=== PATIENT | male | born 1945 | race Caucasian/White ===

== ENCOUNTER 2018-07-02 13:32 | Emergency (ER) | payer OTHER ==
--- NOTE | 2018-07-02 13:51 | EDPHY ---
H & P Stated Complaint: VERTIGO THEN NAUSEA/VOMIT, START 1100, SENT FROM [facility]? Time Seen by Provider: 07/02/18 13:50 HPI/ROS: CHIEF COMPLAINT: Dizziness, nausea HISTORY OF PRESENT ILLNESS: The patient is a 72 y/o male with a history of CAD arriving with his at the recommendation of his PCP for evaluation of dizziness and nausea. He was at a [employer] festival this weekend and felt fatigued by the end of it. Upon returning home he went to sleep immediately. About one hour after waking around 11:10, 3 hours ago, he suddenly became dizzy and saw the room rotating clockwise. This was associated with nausea and profuse diaphoresis. The spinning sensation lasted for less than a minute and improved after drinking some water. When he got up to walk he felt slightly off balance like he was listing to the right. He read about symptoms online and became concerned he could be having a heart attack so he went to see his PCP. They performed an EKG, administered Zofran, and referred him to the ED. Per the patient "right now the leading suspect is marijuana" as he is an avid daily user. He has vomited three times since symptoms began. He says he currently feels "lousy" and is still nauseated. He also has a generalized headache more along the back of his head and notes that he does not typically get headaches. The headache did not come on abruptly and is not severe. He denies vision changes, hearing changes, difficulty with speech, weakness, paresthesias. No recent illness. REVIEW OF SYSTEMS: A ten system review of systems was performed and is negative with the exception of the items mentioned in the HPI. Past medical history: 1. High calcium score 2. Some type of arrhythmia 3. Hypertension - Cozaar, metoprolol Past surgical history: Noncontributory Family history: Noncontributory Social history: Daily marijuana use "quite a bit;" "take a hit every hour" via vaporizer, no edibles. No other recreational drugs. Occasional alcohol use. Never smoker. at bedside. 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 PCP: Dr. Johnson. General Appearance: Alert. Vital signs reviewed. Blood pressure 210/90 at triage, 158/79 at DC. Heart rate 59. Eyes: Pupils equal and round, no conjunctival injection, no discharge. Anicteric. ENT, Mouth: Mucous membranes are moist, no oropharyngeal erythema or edema. TMs obscured by cerumen bilaterally. Neck: No lymphadenopathy, supple. No carotid bruit. No meningeal signs. Respiratory: Lungs are clear to auscultation; no wheezes, rales, or rhonchi. Cardiovascular: Regular rate and rhythm; no murmur, rub, or gallop. Gastrointestinal: Abdomen is soft and nontender, no masses or organomegaly. Skin: Warm and dry, no rashes on exposed skin, normal color. Back: Nontender to palpation over the thoracolumbar spine. No CVAT. Extremities: No lower extremity edema, no calf tenderness or swelling. Neurological: Alert and oriented. Moving all four extremities easily and equally. Cranial nerves II through XII are examined and are intact (visual acuity not tested). Strength is 5 over 5 bilaterally with testing of all major motor groups. Sensation is intact to light touch over all 4 extremities. Deep tendon reflexes are 2+ in the biceps and knees bilaterally. [id number] is performed accurately. No truncal ataxia. Normal gait. Psychiatric: Normal affect. - Personal History Current Tetanus/Diphtheria Vaccine: Yes - Medical/Surgical History Hx Asthma: Yes Hx Chronic Respiratory Disease: Yes Hx Diabetes: No Hx Cardiac Disease: Yes Hx Renal Disease: No Hx Cirrhosis: No Hx Alcoholism: No Hx HIV/AIDS: No Hx Splenectomy or Spleen Trauma: No Other PMH: APPY, HYDROCELE, DIVERTICULITIS, COPD, CAD, HTN, PRE-DIABET, ARRYTHMIA, DEPRESSION - Social History Smoking Status: Never smoked Constitutional: Initial Vital Signs Heart Rate 59 L 07/02/18 13:40 Respiratory Rate 20 07/02/18 13:40 Blood Pressure 210/90 H 07/02/18 13:40 O2 Sat (%) 97 07/02/18 13:40 O2 Delivery Mode Room Air Allergies/Adverse Reactions: No Known Allergies Allergy (Unverified 07/02/18 13:37) Home Medications: Medication Instructions Recorded Amlodipine Besylate 07/02/18 Aspirin 07/02/18 Atorvastatin Calcium 07/02/18 Cozaar 07/02/18 Fish Oil 1000 mg (*) 07/02/18 Metformin HCl 07/02/18 Metoprolol Tartrate 07/02/18 Niacin 07/02/18 Ondansetron Odt [Zofran Odt 4 mg 4 mg PO Q4 PRN #10 tab 07/02/18 (RX)] Venlafaxine HCl 07/02/18 Vitamin D3 07/02/18 Medical Decision Making - Diagnostics Imaging: Discussed imaging studies w/ call center representative Radiologist, I viewed and interpreted images myself ED Course/Re-evaluation: This is a 72 y/o male who presents with acute onset room-spinning dizziness with associated nausea, diaphoresis, and vomiting. The dizziness improved, but nausea has remained. PCP sent him for cardiac evaluation, though suspect cannabinoid hyperemesis. He has a normal neurologic exam and benign abdomen. Consider vertigo vs. cerebellar abnormality vs stroke (hemorrhagic or ischemic) . He was quite hypertensive on arrival, this improved markedly during his stay. Plan for IV, labs, EKG, head CT, symptomatic management. 4mg IV Zofran ordered. The 12 lead EKG was interpreted by myself. Sinus bradycardia rate 48. See hard copy and/or "tracemaster" electronic copy for interpretation. Head CT: nothing acute Patient is continuing to feel nauseated on reassessment. He says he got new marijuana last week and is wondering if it was stronger than normal. Will treat for possible cannabinoid hyperemesis with 2mg IV Haldol. 1714: Patient is tolerating PO ice chips without issue. During his ED stay ( four hours) he received one liter NS IVF, zofran 4 mg IV, followed by Haldol 2 mg IV (for treatment of possible cyclic vomiting) and PO tylenol. His gait remains stable, but he continues with mild nausea. He has not vomited since his arrival. I do not think that he has had an ICH and I do not find convincing signs of a cerebellar abnormality on exam. He has a normal neurologic exam. BP 158/79. We discussed MRI, but at this point I do not feel that an MRI is needed. Danger signs reviewed with the patient and his . I tried to reach referring midlevel (Dr. Johnson's office) to provide an update on patient's condition, but was unable to do so. Differential Diagnosis: Vertigo including but not limited to peripheral causes such as benign positional vertigo, Meniere's disease, viral labyrinthitis and central causes such as CVA, and tumor. I considered other causes of dizziness and vomiting including cerebellar stroke and cyclic vomiting syndrome. - Data Points Laboratory Results: Laboratory Results 07/02/18 14:32 07/02/18 14:32 Medications Given: Discontinued Medications Acetaminophen (Tylenol) 650 mg PO EDNOW ONE Stop: 07/02/18 17:06 Last Admin: 07/02/18 17:36 Dose: 650 mg Haloperidol Lactate (Haldol Injection) 2 mg IVP EDNOW ONE Stop: 07/02/18 15:57 Last Admin: 07/02/18 16:04 Dose: 2 mg Sodium Chloride (Ns) 1,000 mls @ 0 mls/hr IV EDNOW ONE; Wide Open PRN Reason: Protocol Stop: 07/02/18 15:57 Last Admin: 07/02/18 16:04 Dose: 1,000 mls Ondansetron HCl (Zofran) 4 mg IVP EDNOW ONE Stop: 07/02/18 14:30 Last Admin: 07/02/18 15:12 Dose: 4 mg Point of Care Test Results: Chemistry 07/02/18 14:41 POC Troponin I 0.00 ng/mL ng/mL (0.00-0.08) Departure - Departure Disposition: Home, Routine, Self-Care Clinical Impression: Vertigo, Nausea Condition: Good Instructions: Ondansetron (By mouth), Vertigo (ED), Acute Nausea and Vomiting ( ED) Additional Instructions: Take Zofran as prescribed if needed for recurrent nausea and vomiting. Follow up with your primary care provider for unimproved symptoms over the next 1-2 days. Return to the ED for worsening of condition. Referrals: Josiah Johnson MD [Primary Care Provider] - As per Instructions Prescriptions: Ondansetron Odt [Zofran Odt 4 mg (RX)] 4 mg PO Q4 PRN #10 tab PRN Reason: nausea Report Scribed for: Skyla Musa Report Scribed by: Becca Ellis Date of Report: 07/02/18 Time of Report: 14:35 Physician Review and Approval Statement: 07/02/18 13:50 Portions of this note were transcribed by the medical consultant. I, Dr. Skyla Musa, personally performed the history, physical exam, and medical decision- making; and confirmed the accuracy of the information in the transcribed note.
[2018-07-02] MEDS ORDERED: ONDANSETRON 4 MG/2 ML VIAL IVP ONE (14:29)
[2018-07-02 14:48] LABS: PLATELET COUNT 177 10^3/uL (150-400)
[2018-07-02] MEDS ORDERED: HALOPERIDOL LACT 5 MG/ML INJ IVP ONE (15:56)
[2018-07-02] MEDS ORDERED: NS 1,000 ML IV ONE (15:56)
--- NOTE | 2018-07-02 16:19 | CPEKG ---
Test Reason : OPEN Blood Pressure : / mmHG Vent. Rate : 048 BPM Atrial Rate : 048 BPM P-R Int : 147 ms QRS Dur : 087 ms QT Int : 536 ms P-R-T Axes : 050 -05 060 degrees QTc Int : 479 ms Sinus bradycardia Borderline T abnormalities, lateral leads Borderline prolonged QT interval Confirmed by Rosi Denise ([id number]) on 07/02/2018 4:18:20 PM Referred By: ROSI DENISE Confirmed By:Rosi Denise
[2018-07-02] MEDS ORDERED: ACETAMINOPHEN 325 MG TAB PO ONE (17:05)
[2018-07-02 18:01] VITALS: BP 158/79
== END 2018-07-02 18:02 | disposition home or self-care (01) ==
DX: R42 Dizziness and giddiness (principal); R11.0 Nausea
CPT/HCPCS: 70450; 93005; 96374; 96375; 99285; J1630; J2405; 84484-ER